=== PATIENT | female | born 1975 | race Caucasian/White ===

== ENCOUNTER 2018-11-23 11:26 | Day surgery (SDC) | payer BC, OTHER ==
[~2018-11-23] VITALS: Ht 157.5 cm; Wt 83.4 kg
[~2018-11-23 11:26] MED LIST: BUPIVACAINE/PF 0.25% ONE; CEFAZOLIN 1,000 MG ONE; DEXAMETHASONE 4 MG/ML, 1ML ONE; FENTANYL PF 250 MCG/5ML ONE; LIDOCAINE-MPF 2% ,5ML ONE; MIDAZOLAM 1 MG/ML, 2ML ONE; ONDANSETRON 2MG/ML, 2ML ONE; PROPOFOL 10 MG/ML, 20ML ONE; ROPIvacaine/PF 0.5%, 30 ML ONE; WATER-INJECTION,STERILE 10 ML IV ONE
[2018-11-23 12:09] VITALS: BP 111/78
[2018-11-23] MEDS ORDERED: SERT25TA3 PO (12:25)
[2018-11-23] MEDS ORDERED: LEVO25TA2 PO (12:25)
[2018-11-23] MEDS ORDERED: TIOT18CA INH (12:25)
[2018-11-23] MEDS ORDERED: BUDE10.2 INH (12:25)
[2018-11-23] MEDS ORDERED: HYDR1TAB13 PO (12:25)
[2018-11-23] MEDS ORDERED: ALBU8.5H8 INH (12:25)
[2018-11-23] MEDS ORDERED: LACTATED RINGERS 1,000 ML IV SCH (12:26)
[2018-11-23] MEDS ORDERED: SCOPOLAMINE PATCH, 1.5MG PATCH.TD72 TD ONE (12:30)
[2018-11-23] MEDS ORDERED: GABAPENTIN 300 MG CAPSULE PO ONE (12:30)
[2018-11-23 12:34] LABS: HCG UR SG 1.016 (1.003-1.030)
[2018-11-23] MEDS ORDERED: PROPOFOL 50 ML ONE (13:56)
[2018-11-23] MEDS ORDERED: FENTANYL PF 100 MCG/2ML ONE (14:51)
[2018-11-23] MEDS ORDERED: ACETAMINOPHEN 650 MG/20.3 ML UDC ONE (14:51)
[2018-11-23] MEDS ORDERED: OXYcodone 5 MG/5 ML ORAL.SOL UDC ONE (14:51)
[2018-11-23] MEDS ORDERED: HALOPERIDOL 5 MG/ML IV PRN (15:00)
[2018-11-23] MEDS ORDERED: HYDROmorphone 2 MG/ML, 1ML IVPush PRN (15:00)
[2018-11-23] MEDS ORDERED: PROMETHAZINE 25 MG/ML, 1ML IV PRN (15:00)
[2018-11-23] MEDS ORDERED: OXYcodone 5 MG/5 ML ORAL.SOL UDC PO PRN (15:00)
[2018-11-23] MEDS ORDERED: hydrALAzine 20 MG/ML, 1ML IV PRN (15:00)
[2018-11-23] MEDS ORDERED: MEPERIDINE/PF 25MG/0.5ML IVPush PRN (15:00)
[2018-11-23] MEDS: FENTANYL PF 100 MCG/2ML IV PRN ×2 (15:19→15:26)
== END 2018-11-23 17:34 | disposition home or self-care (01) ==
LOC: OUT 11:26
PROVIDERS: ATTEND Orthopaedic Surgery
DX: S82.841A Displaced bimalleolar fracture of right lower leg, initial encounter for closed fracture (principal); S93.431A Sprain of tibiofibular ligament of right ankle, initial encounter; J44.9 Chronic obstructive pulmonary disease, unspecified; Z72.89 Other problems related to lifestyle; Z79.890 Hormone replacement therapy; Z79.891 Long term (current) use of opiate analgesic; Z79.899 Other long term (current) drug therapy; Z90.49 Acquired absence of other specified parts of digestive tract; Z82.61 Family history of arthritis; V78.4XXA Person boarding or alighting from bus injured in noncollision transport accident, initial encounter; Y93.01 Activity, walking, marching and hiking; Y92.89 Other specified places as the place of occurrence of the external cause; Y99.8 Other external cause status
CPT/HCPCS: 27814; 27829; 64445; 64447; 73600; 76000; 81025; C1713; J0690; J1100; J2250; J2405; J2704; J2795; J3010; J3490; J7120